=== PATIENT | female | born 1940 | race American Indian/Alaskan Native ===

== ENCOUNTER 2017-02-11 10:38 | Inpatient (IN) | payer MEDICARE ==
[2017-02-11] MEDS ORDERED: TYLENOL ONE (11:05)
[2017-02-11] MEDS ORDERED: TYLENOL PO ONE (11:16)
[2017-02-11 11:26] LABS: Basophils % (Auto) 0.2 % (0.0-1.8); Eosinophils % (Auto) 0.7 % (0.0-4.3); Hematocrit 36.1 % (30.3-42.9); Hemoglobin 11.9 gm/dl (10.1-14.3); Mean Corpuscular HGB Conc 33 % (30-34); Mean Corpuscular Volume 76 fl (79-97); Platelet Count 141 K/mm3 (140-440); Red Blood Count 4.75 M/mm3 (3.65-5.03); White Blood Count 6.8 K/mm3 (4.5-11.0)
--- NOTE | 2017-02-11 11:30 | XRay Report ---
CHEST TWO VIEWS: 02/11/17 10:38:00 CLINICAL: Shortness of breath. COMPARISON: 02/06/12 FINDINGS: Normal heart and pulmonary vasculature. Subtle patchy opacities adjacent to the left hilum and in the left lower lobe. The right lung is clear.Degenerative changes in the spine. IMPRESSION: Suspect early left upper lobe and left lower lobe pneumonia.
[2017-02-11 11:34] LABS: Mean Corpuscular Hemoglobin 25 pg (28-32)
[2017-02-11 11:52] LABS: Anion Gap 20 mmol/L; BUN/Creatinine Ratio 15.33; Blood Urea Nitrogen 23 mg/dL (7-17); Calcium 8.9 mg/dL (8.4-10.2); Carbon Dioxide 25 mmol/L (22-30); Chloride 95.3 mmol/L (98-107); Glucose 138 mg/dL (65-100); Potassium 4.8 mmol/L (3.6-5.0); Sodium 135 mmol/L (137-145)
--- NOTE | 2017-02-11 13:50 | Admit Criteria Form ---
Admission Criteria Documentation: PNEUMONIA, COMMUNITY ACQUIRED Clinical Indications for Admission to Inpatient Care ( Place 'X' for any and all applicable criteria): Admission is indicated for ANY ONE of the following (1)(2)(3): [ ]I. Hypoxemia indicated by ANY ONE of the following: [ ]a) Oxygen saturation less than 90% while breathing room air [ ]b) PO2 less than 60 mm Hg (8.0 kPa) while breathing room air [ ]c) Chronic lung disease with significant deterioration from baseline oxygenation [X]II. Appropriate diagnostic testing and treatment unavailable in outpatient or recovery facility (eg,testing or infection control measures unavailable(10) [ ]III. Moderate-risk or high-risk category patients (Pneumonia Severity Index (PSI) class IV or V, or CURB-65 score of 3 or greater). [ ]IV. Outpatient treatment failure as indicated by ANY ONE of the following(9) : [ ]a) Failure to respond to antibiotic (eg, resistant organism) [ ]b) Clinically significant adverse effects from medication (eg, vomiting) [ ]c) Complications of pneumonia (eg, empyema, bacteremia) [ ]d) Significant worsening of comorbid cond necessitating inpatient care (eg, chronic heart failure) [ ]V. Intermediate-risk category patients (eg, PSI class III or CURB-65 score 2) who do not improve with initial therapy and observation. [ ]. Immunocompromised patients (eg, AIDS, chronic steroid use) at moderate or high risk based on clinical evaluation. [ ]VII. Complicated pleural effusions (eg, exudative, loculated) [ ]VIII.Hemodynamic instability [ ] IX. Altered mental status that is severe or persistent. [ ]X. Dehydration that is severe or persistent. [ ]XI. Bacteremia [ ]XII. Respiratory finding (eg. tachypnea) that do not respond to outpatient or observation care treatment Extended stay beyond goal length of stay may be needed for (20) [ ]a) Unclear diagnosis [ ]b) Pleural disease [ ]c) Severe pneumonia or treatment failure (25 [ ]d) Respiratory failure (anticipate invasive or noninvasive ventilatory support) [ ]e) Abnormal serum electrolytes (serum Na concentration less than 135 mEq/L (mmol/L) (32)(33) [ ]f) Clinically significant comorbid illness (eg, heart failure, atrial fibrillation with rapid heart rate, alcohol withdrawal, renal insufficiency)(34)(35) [ ]g) Comorbid acute exacerbation of COPD(36) [ ]h) Concomitant diagnosis of malignancy that may be associated with malnutrition, immunologic impairment, or bronchial obstruction. [ ]i) Concomitant altered mental status [ ]j) Culture-identified Gram-negative or antibiotic-resistant organism (eg, Pseudomonas, methicillin-resistant Staphylococcus aureus)(30) [ ]k) Healthcare-associated pneumonia The original [employer] content created by [employer] has been revised. The portions of the content which have been revised are identified through the use of italic text or in bold, and [facility] has neither reviewed nor approved the modified material. All other unmodified content is copyright [employer]. Please see references footnoted in the original [employer] [email or web address] edition 2016 Admission Criteria Met: Yes
[2017-02-11] MEDS ORDERED: ROCEPHIN/NS 1 GM/50 ML 1 GM/50 ML BAG IV ONE (16:09)
[2017-02-11] MEDS ORDERED: PROVENTIL IH ONE (16:09)
[2017-02-11] MEDS ORDERED: ATROVENT IH ONE (16:09)
[2017-02-11] MEDS ORDERED: MAGNESIUM SULFATE 2GM/50ML 2 GM/50 ML BAG IV ONE (16:09)
[2017-02-11] MEDS ORDERED: TESSALON PERLES PO ONE (16:10)
[2017-02-11] MEDS ORDERED: NACL 0.9% 1000 ML 1,000 ML IV ONE (16:10)
[2017-02-11] MEDS ORDERED: ZITHROMAX 500 MG in NACL 0.9% 250ML 250 ML IV ONE (17:00)
--- NOTE | 2017-02-11 18:26 | Emergency Department Report ---
- General Chief Complaint: Dyspnea/Respdistress Stated Complaint: FLU SYMPTOMS Time Seen by Provider: 02/11/17 15:58 Source: patient Mode of arrival: Ambulatory Limitations: No Limitations - History of Present Illness Initial Comments: 76-year-old female with a past medical history asthma, diabetes, hypertension presents to Hospital complaints of shortness of breath, cough, and fever for the past 6 days. Patient complains of generalized body aches S2 in intensity. Cough is nonproductive. Fever 101 upon arrival. Patient has been using over- the-counter medication without improvement. Increased wheezing and shortness of breath episodes. No previous history of intubations. PMD.: Dr. Barno - Related Data Home Medications Medication Instructions Recorded Confirmed Last Taken Ferrous Sulfate [Feosol] 325 mg PO QDAY 02/11/17 02/11/17 02/10/17 Lisinopril/Hydrochlorothiazide 20 - 25 mg PO QDAY 02/11/17 02/11/17 02/10/17 [Zestoretic 20-12.5 mg] Meclizine [Antivert] 25 mg PO TID PRN 02/11/17 02/11/17 02/10/17 chlordiazePOXIDE [Librium] 20 mg PO Q8H 02/11/17 02/11/17 02/10/17 metFORMIN [Glucophage] 500 mg PO BID 02/11/17 02/11/17 02/10/17 Allergies Allergy/AdvReac Type Severity Reaction Status Date / Time ibuprofen [From Motrin] Allergy Vomiting Verified 02/11/17 16:09 methocarbamol [From Robaxin] Allergy Vomiting Verified 02/11/17 16:09 PEANUTS Allergy Vomiting Uncoded 02/02/15 14:27 ED Review of Systems ROS: Stated complaint: FLU SYMPTOMS Other details as noted in HPI Comment: All other systems reviewed and negative Other: Constitutional: fever Eyes: No eye pain visual changes or discharge ENT: No ear pain or throat pain Neck: Denies pain Respiratory: As per HPI Cardiovascular: Denies palpitations, syncope GI: Denies abdominal pain, nausea, vomiting, diarrhea : Denies dysuria Musculoskeletal: Generalized aches Skin: Denies rash, lesions, erythema Neurologic: Denies headache, numbness, weakness Psychiatric: Denies suicidal ideation, hallucinations ED Past Medical Hx - Past Medical History Previous Medical History?: Yes Hx Hypertension: Yes Hx Diabetes: Yes (pre dm) Hx Asthma: Yes - Surgical History Past Surgical History?: Yes Hx Cholecystectomy: Yes Additional Surgical History: neck surgery. right hand surgery. left knee surgery. hysterectomy - Social History Smoking Status: Never Smoker Substance Use Type: None - Medications Home Medications: Home Medications Medication Instructions Recorded Confirmed Last Taken Type Ferrous Sulfate [Feosol] 325 mg PO QDAY 02/11/17 02/11/17 02/10/17 History Lisinopril/Hydrochlorothiazide 20 - 25 mg PO QDAY 02/11/17 02/11/17 02/10/17 History [Zestoretic 20-12.5 mg] Meclizine [Antivert] 25 mg PO TID PRN 02/11/17 02/11/17 02/10/17 History chlordiazePOXIDE [Librium] 20 mg PO Q8H 02/11/17 02/11/17 02/10/17 History metFORMIN [Glucophage] 500 mg PO BID 02/11/17 02/11/17 02/10/17 History ED Physical Exam - General Limitations: No Limitations - Other Other exam information: General: No limitations, patient is alert in no acute distress Head exam: Atraumatic, normocephalic Eyes exam: Normal appearance ENT: Moist mucous membrane, normal oropharynx Neck exam: Normal inspection, full range of motion, no meningismus nontender Respiratory exam: Bilateral wheezing, mild tachypnea Cardiovascular: Normal rate and rhythm, normal heart sounds Abdomen: Soft, nondistended, and nontender, with normal bowel sounds, no rebound, or guarding Extremity: Full range of motion normal inspection no deformity, no calf tenderness or edema Back: Normal Inspection, full range of motion, no tenderness Neurologic: Alert, oriented x3, cranial nerves intact, no motor or sensory deficit Psychiatric: normal affect, normal mood Skin: Warm, dry, intact ED Course Vital Signs 02/11/17 02/11/17 02/11/17 10:57 14:15 14:30 Temperature 101.0 F H 99.6 F Pulse Rate 79 87 Respiratory 20 18 Rate Blood Pressure 131/70 O2 Sat by Pulse 96 Oximetry 02/11/17 02/11/17 02/11/17 14:31 15:00 15:31 Temperature Pulse Rate 79 78 74 Respiratory 17 17 20 Rate Blood Pressure 114/55 121/62 114/55 O2 Sat by Pulse 99 94 98 Oximetry 02/11/17 02/11/17 02/11/17 16:01 16:31 17:00 Temperature Pulse Rate 81 90 80 Respiratory 15 20 18 Rate Blood Pressure 111/54 111/54 112/52 O2 Sat by Pulse 93 96 99 Oximetry - Reevaluation(s) Reevaluation #1: 02/11/17 18:35 Patient received Tylenol prior to my evaluation with reduction in temperature. Patient treated with Solu-Medrol, magnesium, normal saline, Rocephin, and azithromycin, albuterol, and Atrovent with some improvement but pt still having wheezing. Room air sat 100% ED Medical Decision Making - Lab Data Result diagrams: 02/11/17 11:12 02/11/17 11:12 Lab Results 02/11/17 02/11/17 02/11/17 Range/Units 11:12 11:12 13:59 WBC 6.8 (4.5-11.0) K/mm3 RBC 4.75 (3.65-5.03) M/mm3 Hgb 11.9 (10.1-14.3) gm/dl Hct 36.1 (30.3-42.9) % MCV 76 L (79-97) fl MCH 25 L (28-32) pg MCHC 33 (30-34) % RDW 16.0 H (13.2-15.2) % Plt Count 141 (140-440) K/mm3 Lymph % (Auto) 41.1 H (13.4-35.0) % [place] % (Auto) 13.7 H (0.0-7.3) % Eos % (Auto) 0.7 (0.0-4.3) % Baso % (Auto) 0.2 (0.0-1.8) % Lymph # 2.8 (1.2-5.4) K/mm3 [place] # 0.9 H (0.0-0.8) K/mm3 Eos # 0.0 (0.0-0.4) K/mm3 Baso # 0.0 (0.0-0.1) K/mm3 Seg Neutrophils % 44.3 (40.0-70.0) % Seg Neutrophils # 3.0 (1.8-7.7) K/mm3 Sodium 135 L (137-145) mmol/L Potassium 4.8 (3.6-5.0) mmol/L Chloride 95.3 L (98-107) mmol/L Carbon Dioxide 25 (22-30) mmol/L Anion Gap 20 mmol/L BUN 23 H (7-17) mg/dL Creatinine 1.5 H (0.7-1.2) mg/dL Estimated GFR 41 ml/min BUN/Creatinine Ratio 15.33 % Glucose 138 H (65-100) mg/dL POC Glucose (70-105) Calcium 8.9 (8.4-10.2) mg/dL Troponin T < 0.010 < 0.010 (0.00-0.029) ng/mL 02/11/17 02/11/17 Range/Units 16:35 16:38 WBC (4.5-11.0) K/mm3 RBC (3.65-5.03) M/mm3 Hgb (10.1-14.3) gm/dl Hct (30.3-42.9) % MCV (79-97) fl MCH (28-32) pg MCHC (30-34) % RDW (13.2-15.2) % Plt Count (140-440) K/mm3 Lymph % (Auto) (13.4-35.0) % [place] % (Auto) (0.0-7.3) % Eos % (Auto) (0.0-4.3) % Baso % (Auto) (0.0-1.8) % Lymph # (1.2-5.4) K/mm3 [place] # (0.0-0.8) K/mm3 Eos # (0.0-0.4) K/mm3 Baso # (0.0-0.1) K/mm3 Seg Neutrophils % (40.0-70.0) % Seg Neutrophils # (1.8-7.7) K/mm3 Sodium (137-145) mmol/L Potassium (3.6-5.0) mmol/L Chloride (98-107) mmol/L Carbon Dioxide (22-30) mmol/L Anion Gap mmol/L BUN (7-17) mg/dL Creatinine (0.7-1.2) mg/dL Estimated GFR ml/min BUN/Creatinine Ratio % Glucose (65-100) mg/dL POC Glucose 94 (70-105) Calcium (8.4-10.2) mg/dL Troponin T < 0.010 (0.00-0.029) ng/mL - Radiology Data Radiology results: report reviewed (chest x-ray: Early left upper lobe and left lower lobe pneumonia) - Medical Decision Making Patient feeling somewhat better we ED treatment but has persistent wheezing. Will admit to the hospital further treatment of pneumonia with associated asthma exacerbation. - Differential Diagnosis pneumonia, bronchitis, asthma, viral syndrome Critical Care Time: No Critical care attestation.: If time is entered above; I have spent that time in minutes in the direct care of this critically ill patient, excluding procedure time. ED Disposition Clinical Impression: Pneumonia, Asthma exacerbation, Renal insufficiency Disposition: OP ADMITTED IP TO THIS HOSP Is pt being admited?: Yes Condition: Stable Time of Disposition: 18:44 (Dr esparza/hosp)
--- NOTE | 2017-02-11 19:15 | Emergency Department Report ---
Blank Doc - Documentation Documentation: Unable to edit chart. EKG normal sinus rhythm [address] elevation or T- wave inversions.
[2017-02-12] MEDS ORDERED: ANTIVERT PO PRN (03:13)
[2017-02-12] MEDS ORDERED: DUONEB 0.5 MG-3 MG/3 ML SOLN IH PRN (03:15)
[2017-02-12] MEDS ORDERED: PROVENTIL IH PRN (03:32)
[2017-02-12] MEDS: LIBRIUM PO SCH ×3 (06:56→23:39)
[2017-02-12] MEDS: DUONEB 0.5 MG-3 MG/3 ML SOLN IH SCH ×4 (08:00→19:50)
[2017-02-12] MEDS ORDERED: GLUCOPHAGE PO SCH (08:00)
--- NOTE | 2017-02-12 08:17 | Event Note ---
Date: 02/11/17 See H/p in reports
--- NOTE | 2017-02-12 09:28 | Progress Note ---
Assessment and Plan Assessment and plan: Sepsis. Patient is criteria given the diagnosis of pneumonia and organ failure with acute renal failure. Patient will be placed on the sepsis pathway. Follow -up blood, sputum cultures and lactic acid levels. Left lower lobe pneumonia. Pneumonia pathway. Continue IV antibiotics. Acute asthma exacerbation. Continue breathing treatments and steroids. Diabetes mellitus type 2. Hold metformin given the renal insufficiency. Continue Accu-Cheks and sliding scale. Hypertension. Resume antihypertensive medications. History Interval history: Pt. c/o of cough with no improvement Hospitalist Physical - Constitutional Vitals: Temp Pulse Resp BP Pulse Ox 98.6 F 100 H 24 133/62 95 02/11/17 22:00 02/11/17 23:21 02/11/17 23:21 02/11/17 22:00 02/11/17 23:21 General appearance: Present: no acute distress, well-nourished - EENT Eyes: Present: PERRL, EOM intact ENT: hearing intact, clear oral mucosa, dentition normal - Neck Neck: Present: supple, normal ROM - Respiratory Respiratory effort: normal Respiratory: bilateral: diminished, rhonchi, wheezing - Cardiovascular Rhythm: regular Heart Sounds: Present: S1 & S2. Absent: gallop, rub - Extremities Extremities: no ischemia, No edema, Full ROM - Abdominal General gastrointestinal: soft, non-tender, non-distended, normal bowel sounds - Integumentary Integumentary: Present: clear, warm, dry - Neurologic Neurologic: CNII-XII intact, moves all extremities Results - Labs CBC & Chem 7: 02/11/17 11:12 02/11/17 11:12 Labs: Laboratory Last Values WBC 6.8 K/mm3 (4.5-11.0) 02/11/17 11:12 RBC 4.75 M/mm3 (3.65-5.03) 02/11/17 11:12 Hgb 11.9 gm/dl (10.1-14.3) 02/11/17 11:12 Hct 36.1 % (30.3-42.9) 02/11/17 11:12 MCV 76 fl (79-97) L 02/11/17 11:12 MCH 25 pg (28-32) L 02/11/17 11:12 MCHC 33 % (30-34) 02/11/17 11:12 RDW 16.0 % (13.2-15.2) H 02/11/17 11:12 Plt Count 141 K/mm3 (140-440) 02/11/17 11:12 Lymph % (Auto) 41.1 % (13.4-35.0) H 02/11/17 11:12 [place] % (Auto) 13.7 % (0.0-7.3) H 02/11/17 11:12 Eos % (Auto) 0.7 % (0.0-4.3) 02/11/17 11:12 Baso % (Auto) 0.2 % (0.0-1.8) 02/11/17 11:12 Lymph # 2.8 K/mm3 (1.2-5.4) 02/11/17 11:12 [place] # 0.9 K/mm3 (0.0-0.8) H 02/11/17 11:12 Eos # 0.0 K/mm3 (0.0-0.4) 02/11/17 11:12 Baso # 0.0 K/mm3 (0.0-0.1) 02/11/17 11:12 Seg Neutrophils % 44.3 % (40.0-70.0) 02/11/17 11:12 Seg Neutrophils # 3.0 K/mm3 (1.8-7.7) 02/11/17 11:12 Sodium 135 mmol/L (137-145) L 02/11/17 11:12 Potassium 4.8 mmol/L (3.6-5.0) 02/11/17 11:12 Chloride 95.3 mmol/L (98-107) L 02/11/17 11:12 Carbon Dioxide 25 mmol/L (22-30) 02/11/17 11:12 Anion Gap 20 mmol/L 02/11/17 11:12 BUN 23 mg/dL (7-17) H 02/11/17 11:12 Creatinine 1.5 mg/dL (0.7-1.2) H 02/11/17 11:12 Estimated GFR 41 ml/min 02/11/17 11:12 BUN/Creatinine Ratio 15.33 % 02/11/17 11:12 Glucose 138 mg/dL (65-100) H 02/11/17 11:12 POC Glucose 163 (70-105) H 02/12/17 06:19 Calcium 8.9 mg/dL (8.4-10.2) 02/11/17 11:12 Troponin T < 0.010 ng/mL (0.00-0.029) 02/11/17 16:38
[2017-02-12] MEDS: FEOSOL PO SCH (09:52)
[2017-02-12] MEDS ORDERED: LEVAQUIN 750MG/150ML 750 MG/150 ML BAG IV SCH (10:00)
[2017-02-12] MEDS: TESSALON PERLES PO SCH ×3 (10:35→23:41)
--- NOTE | 2017-02-12 10:42 | History and Physical Report ---
CHIEF COMPLAINT: Shortness of breath for 6 days. HISTORY OF PRESENT ILLNESS: A 76-year-old female with history of asthma, diabetes, hypertension, comes in for shortness of breath, cough and fever for 6 days duration. Body aches also. Cough is nonproductive. Fever of 101, on arrival. The patient has been using [id number] medications. Also, increasing wheezing and shortness of breath. PAST MEDICAL HISTORY: Hypertension, diabetes, anemia, asthma. CURRENT MEDICATIONS: Ferrous sulfate 325 mg once a day, lisinopril/hydrochlorothiazide 20/25 once a day, meclizine 25 mg p.o. t.i.d., chlordiazepoxide 20 mg p.o. q.8, metformin 500 mg p.o. b.i.d. ALLERGIES: PEANUTS, IBUPROFEN, METHOCARBAMOL. PAST SURGICAL HISTORY: Cholecystectomy, neck surgery, right hand surgery, left knee surgery and hysterectomy. SOCIAL HISTORY: Does not smoke. No alcohol, no recreational drugs. REVIEW OF SYSTEMS: CONSTITUTIONAL: Has fever and chills. No weight loss, no weight gain. HEENT: No sore throat. No postnasal drip. CARDIOVASCULAR AND RESPIRATORY SYSTEM: Bilateral, the patient has wheezing and cough, which is nonproductive. Also, increasing shortness of breath. No chest pain. GASTROINTESTINAL: No nausea, no vomiting, no diarrhea. GENITOURINARY: No dysuria, no flank pain. MUSCULOSKELETAL: No joint pain. Muscle pain present. CENTRAL NERVOUS SYSTEM: No syncope, no seizures. PSYCHIATRIC: No depression. SKIN: No rashes. A 14-point review of systems was done. PHYSICAL EXAMINATION: Elderly female, cooperative during examination. VITAL SIGNS: Temperature 101.0, blood pressure 131/70, sats are 96%, pulse is 79. HEENT: Unremarkable. Pupils equal and reactive. NECK: Supple, no lymphadenopathy, no thyromegaly. LUNGS: Bilateral inspiratory and expiratory rhonchi present. CARDIOVASCULAR: S1, S2 heard. No gallop, no murmur, no rub. Apical impulse in left fifth intercostal space and midclavicular line. ABDOMEN: Soft and benign. No hepatosplenomegaly. No guarding, no rigidity. Hernial orifices are normal. EXTREMITIES: Good pedal pulses. No pedal edema. CENTRAL NERVOUS SYSTEM: Alert and oriented x 4, nonfocal exam. SKIN: Normal. LABORATORY DATA: Chest x-ray shows left upper lobe and left lower lobe pneumonias. White count is 6800, H and H is 11.9 and 36.1, platelet count is 141,000. Sodium is 135, potassium is 4.8, chloride is 95.3, bicarbonate is 25, BUN and creatinine 23 and 1.5, glucose is 138. EKG, normal sinus rhythm. ASSESSMENT AND PLAN: 1. Left side pneumonia, possible aspiration. The patient was started on broad spectrum antibiotics, which is IV Levaquin 750 mg IV piggyback every 24. 2. Asthma exacerbation. The patient started on DuoNeb and Solu-Medrol 60 mg IV piggyback q.8 hours. 3. Hypertension. Continue lisinopril 20/12.5 daily. 4. Anemia. Continue ferrous sulfate. 5. Type 2 diabetes mellitus. Continue metformin 500 mg twice a day. Accu-Cheks a.c., and sliding scale coverage. Check A1c. 6. Deep venous thrombosis prophylaxis, Lovenox 40 mg subcutaneous daily. JOB# [id number] VSM/NTS
[2017-02-12] MEDS: ZESTRIL PO SCH (12:41)
[2017-02-12] MEDS: HCTZ PO SCH (12:43)
[2017-02-12] MEDS: NOVOLOG SUB-Q SCH ×2 (16:30→23:41)
[2017-02-13] MEDS: DUONEB 0.5 MG-3 MG/3 ML SOLN IH SCH ×4 (02:36→20:37)
[2017-02-13] MEDS: XALATAN 0.005% OU SCH ×2 (03:06→22:08)
[2017-02-13] MEDS: TESSALON PERLES PO SCH ×3 (07:04→22:07)
[2017-02-13] MEDS: LIBRIUM PO SCH ×3 (08:14→22:08)
[2017-02-13] MEDS: NOVOLOG SUB-Q SCH ×4 (08:24→23:05)
--- NOTE | 2017-02-13 10:38 | Progress Note ---
Assessment and Plan Assessment and plan: Sepsis. Patient is criteria given the diagnosis of pneumonia and organ failure with acute renal failure. Patient will be placed on the sepsis pathway. Follow -up blood and sputum cultures. Lactic acid level was slightly elevated at 2.4 Left lower lobe pneumonia. Pneumonia pathway. Continue IV antibiotics. Acute asthma exacerbation. Continue breathing treatments and steroids. Diabetes mellitus type 2. Hold metformin given the renal insufficiency. Continue Accu-Cheks and sliding scale. Hypertension. Resume antihypertensive medications. History Interval history: Patient states that her cough is better. Patient also reports less dyspnea with exertion. Hospitalist Physical - Constitutional Vitals: Temp Pulse Resp BP Pulse Ox 97.8 F 76 18 133/75 100 02/13/17 08:00 02/13/17 08:00 02/13/17 08:00 02/13/17 08:00 02/13/17 08:00 General appearance: Present: no acute distress, well-nourished - EENT Eyes: Present: PERRL, EOM intact ENT: hearing intact, clear oral mucosa, dentition normal - Neck Neck: Present: supple, normal ROM - Respiratory Respiratory effort: normal Respiratory: bilateral: diminished, rhonchi - Cardiovascular Rhythm: regular Heart Sounds: Present: S1 & S2. Absent: gallop, rub - Extremities Extremities: no ischemia, No edema, Full ROM - Abdominal General gastrointestinal: soft, non-tender, non-distended, normal bowel sounds - Integumentary Integumentary: Present: clear, warm, dry - Neurologic Neurologic: CNII-XII intact, moves all extremities Results - Labs CBC & Chem 7: 02/11/17 11:12 02/11/17 11:12 Labs: Laboratory Last Values WBC 6.8 K/mm3 (4.5-11.0) 02/11/17 11:12 RBC 4.75 M/mm3 (3.65-5.03) 02/11/17 11:12 Hgb 11.9 gm/dl (10.1-14.3) 02/11/17 11:12 Hct 36.1 % (30.3-42.9) 02/11/17 11:12 MCV 76 fl (79-97) L 02/11/17 11:12 MCH 25 pg (28-32) L 02/11/17 11:12 MCHC 33 % (30-34) 02/11/17 11:12 RDW 16.0 % (13.2-15.2) H 02/11/17 11:12 Plt Count 141 K/mm3 (140-440) 02/11/17 11:12 Lymph % (Auto) 41.1 % (13.4-35.0) H 02/11/17 11:12 [place] % (Auto) 13.7 % (0.0-7.3) H 02/11/17 11:12 Eos % (Auto) 0.7 % (0.0-4.3) 02/11/17 11:12 Baso % (Auto) 0.2 % (0.0-1.8) 02/11/17 11:12 Lymph # 2.8 K/mm3 (1.2-5.4) 02/11/17 11:12 [place] # 0.9 K/mm3 (0.0-0.8) H 02/11/17 11:12 Eos # 0.0 K/mm3 (0.0-0.4) 02/11/17 11:12 Baso # 0.0 K/mm3 (0.0-0.1) 02/11/17 11:12 Seg Neutrophils % 44.3 % (40.0-70.0) 02/11/17 11:12 Seg Neutrophils # 3.0 K/mm3 (1.8-7.7) 02/11/17 11:12 Sodium 135 mmol/L (137-145) L 02/11/17 11:12 Potassium 4.8 mmol/L (3.6-5.0) 02/11/17 11:12 Chloride 95.3 mmol/L (98-107) L 02/11/17 11:12 Carbon Dioxide 25 mmol/L (22-30) 02/11/17 11:12 Anion Gap 20 mmol/L 02/11/17 11:12 BUN 23 mg/dL (7-17) H 02/11/17 11:12 Creatinine 1.5 mg/dL (0.7-1.2) H 02/11/17 11:12 Estimated GFR 41 ml/min 02/11/17 11:12 BUN/Creatinine Ratio 15.33 % 02/11/17 11:12 Glucose 138 mg/dL (65-100) H 02/11/17 11:12 POC Glucose 216 (70-105) H 02/13/17 06:16 Lactic Acid 2.40 mmol/L (0.7-2.0) H* 02/12/17 13:31 Calcium 8.9 mg/dL (8.4-10.2) 02/11/17 11:12 Troponin T < 0.010 ng/mL (0.00-0.029) 02/11/17 16:38
[2017-02-13] MEDS: FEOSOL PO SCH (11:05)
[2017-02-13] MEDS: HCTZ PO SCH (11:05)
[2017-02-13] MEDS: ZESTRIL PO SCH (11:05)
[2017-02-14] MEDS: DUONEB 0.5 MG-3 MG/3 ML SOLN IH SCH ×4 (02:03→20:59)
[2017-02-14] MEDS: LIBRIUM PO SCH ×3 (05:50→22:26)
[2017-02-14] MEDS: TESSALON PERLES PO SCH ×3 (05:51→22:21)
[2017-02-14] MEDS: ZESTRIL PO SCH (09:48)
[2017-02-14] MEDS: FEOSOL PO SCH (09:48)
[2017-02-14] MEDS: NOVOLOG SUB-Q SCH ×4 (09:49→22:31)
[2017-02-14] MEDS: HCTZ PO SCH (09:59)
[2017-02-14] MEDS ORDERED: LEVAQUIN 750MG/150ML 750 MG/150 ML BAG IV SCH (10:00)
--- NOTE | 2017-02-14 11:08 | Progress Note ---
Assessment and Plan Assessment and plan: Sepsis. Continue IV antibiotics. Left lower lobe pneumonia. Pneumonia pathway. Continue IV antibiotics. Follow -up repeat chest x-ray. Acute asthma exacerbation. Continue breathing treatments and steroids. Diabetes mellitus type 2. Hold metformin given the renal insufficiency. Continue Accu-Cheks and sliding scale. Hypertension. Resume antihypertensive medications. History Interval history: Patient still complains of cough and mild dyspnea with exertion. Hospitalist Physical - Constitutional Vitals: Temp Pulse Resp BP Pulse Ox 97.7 F 68 16 132/60 95 02/14/17 07:00 02/14/17 09:17 02/14/17 09:17 02/14/17 09:48 02/14/17 09:14 General appearance: Present: no acute distress, well-nourished - EENT Eyes: Present: PERRL, EOM intact ENT: hearing intact, clear oral mucosa, dentition normal - Neck Neck: Present: supple, normal ROM - Respiratory Respiratory effort: normal Respiratory: bilateral: diminished, rhonchi - Cardiovascular Rhythm: regular Heart Sounds: Present: S1 & S2. Absent: gallop, rub - Extremities Extremities: no ischemia, No edema, Full ROM - Abdominal General gastrointestinal: soft, non-tender, non-distended, normal bowel sounds - Integumentary Integumentary: Present: clear, warm, dry - Neurologic Neurologic: CNII-XII intact, moves all extremities Results - Labs CBC & Chem 7: 02/11/17 11:12 02/11/17 11:12 Labs: Laboratory Last Values WBC 6.8 K/mm3 (4.5-11.0) 02/11/17 11:12 RBC 4.75 M/mm3 (3.65-5.03) 02/11/17 11:12 Hgb 11.9 gm/dl (10.1-14.3) 02/11/17 11:12 Hct 36.1 % (30.3-42.9) 02/11/17 11:12 MCV 76 fl (79-97) L 02/11/17 11:12 MCH 25 pg (28-32) L 02/11/17 11:12 MCHC 33 % (30-34) 02/11/17 11:12 RDW 16.0 % (13.2-15.2) H 02/11/17 11:12 Plt Count 141 K/mm3 (140-440) 02/11/17 11:12 Lymph % (Auto) 41.1 % (13.4-35.0) H 02/11/17 11:12 [place] % (Auto) 13.7 % (0.0-7.3) H 02/11/17 11:12 Eos % (Auto) 0.7 % (0.0-4.3) 02/11/17 11:12 Baso % (Auto) 0.2 % (0.0-1.8) 02/11/17 11:12 Lymph # 2.8 K/mm3 (1.2-5.4) 02/11/17 11:12 [place] # 0.9 K/mm3 (0.0-0.8) H 02/11/17 11:12 Eos # 0.0 K/mm3 (0.0-0.4) 02/11/17 11:12 Baso # 0.0 K/mm3 (0.0-0.1) 02/11/17 11:12 Seg Neutrophils % 44.3 % (40.0-70.0) 02/11/17 11:12 Seg Neutrophils # 3.0 K/mm3 (1.8-7.7) 02/11/17 11:12 Sodium 135 mmol/L (137-145) L 02/11/17 11:12 Potassium 4.8 mmol/L (3.6-5.0) 02/11/17 11:12 Chloride 95.3 mmol/L (98-107) L 02/11/17 11:12 Carbon Dioxide 25 mmol/L (22-30) 02/11/17 11:12 Anion Gap 20 mmol/L 02/11/17 11:12 BUN 23 mg/dL (7-17) H 02/11/17 11:12 Creatinine 1.5 mg/dL (0.7-1.2) H 02/11/17 11:12 Estimated GFR 41 ml/min 02/11/17 11:12 BUN/Creatinine Ratio 15.33 % 02/11/17 11:12 Glucose 138 mg/dL (65-100) H 02/11/17 11:12 POC Glucose 197 (70-105) H 02/14/17 06:14 Lactic Acid 2.40 mmol/L (0.7-2.0) H* 02/12/17 13:31 Calcium 8.9 mg/dL (8.4-10.2) 02/11/17 11:12 Troponin T < 0.010 ng/mL (0.00-0.029) 02/11/17 16:38
--- NOTE | 2017-02-14 12:20 | XRay Report ---
ROUTINE CHEST, TWO VIEWS: HISTORY: Followup pneumonia. The subtle left upper lobe infiltrate has decreased by 50% since 02/11/17. The remainder of the lungs are clear. No pleural effusion or pneumothorax. Normal heart and mediastinal structures. IMPRESSION: Improvement in the left upper lobe infiltrate.
[2017-02-14] MEDS: XALATAN 0.005% OU SCH (22:30)
[2017-02-15] MEDS: DUONEB 0.5 MG-3 MG/3 ML SOLN IH SCH ×3 (02:06→14:33)
[2017-02-15] MEDS: TESSALON PERLES PO SCH (05:20)
[2017-02-15] MEDS: LIBRIUM PO SCH (05:25)
[2017-02-15 07:41] LABS: Basophils % (Auto) 0.1 % (0.0-1.8); Hematocrit 34.9 % (30.3-42.9); Hemoglobin 11.3 gm/dl (10.1-14.3); Mean Corpuscular HGB Conc 33 % (30-34); Mean Corpuscular Volume 75 fl (79-97); Platelet Count 152 K/mm3 (140-440); Red Blood Count 4.63 M/mm3 (3.65-5.03); Red Cell Distribution Width 16.3 % (13.2-15.2); White Blood Count 12.4 K/mm3 (4.5-11.0)
[2017-02-15 07:53] LABS: BUN/Creatinine Ratio 29.16; Calcium 8.8 mg/dL (8.4-10.2); Chloride 95.2 mmol/L (98-107); Potassium 5.1 mmol/L (3.6-5.0)
[2017-02-15 08:06] LABS: Mean Corpuscular Hemoglobin 25 pg (28-32)
[2017-02-15 08:25] VITALS: BP 137/62
--- NOTE | 2017-02-15 08:29 | Discharge Summary ---
Providers - Providers Date of Admission: 02/11/17 18:45 Date of discharge: 02/15/17 Attending physician: LEXUS SHORT Primary care physician: MARIE GRAFF Hospitalization Reason for admission: pna Condition: Stable Hospital course: This is a 76-year-old female with past medical history of asthma, diabetes and hypertension who presented to the emergency department with complaints of cough and cold symptoms for 6 days prior to admission. Patient also complained of generalized body aches and a fever of 101. Cough was nonproductive. Patient was also noted to have increased wheezing and dyspnea. Chest x-ray revealed left lower lobe pneumonia. Patient was admitted with diagnosis of asthma exacerbation, sepsis, acute kidney injury and pneumonia. The acute kidney injury was to be secondary to vasomotor nephropathy/dehydration and probable sepsis. Patient received appropriate IV antibiotics and has significant improvement. Follow-up chest x-ray showed interval improvement in the pneumonia. Creatinine returned to baseline before discharge of 1.2. Patient is felt to have received maximal hospital benefit and will be discharged home. Dedicated discharge time 35 minutes. Disposition: DISCHARGED TO HOME OR SELFCARE Time spent for discharge: 35 - Discharge Diagnoses (1) LUIS MIGUEL (acute kidney injury) Status: Acute (2) Vasomotor nephropathy Status: Acute (3) Sepsis Status: Acute Qualifiers: Sepsis type: S (4) Asthma exacerbation Status: Acute (5) Pneumonia Status: Acute Qualifiers: Pneumonia type: P Aspiration pneumonia type: A Laterality: L Lung location: L (6) Renal insufficiency Status: Acute Core Measure Documentation - Palliative Care Palliative Care/ Comfort Measures: Not Applicable - Core Measures Any of the following diagnoses?: none Exam - Constitutional Vitals: Temp Pulse Resp BP Pulse Ox 98.4 F 79 18 159/62 97 02/14/17 23:00 02/15/17 08:11 02/15/17 08:11 02/14/17 23:00 02/15/17 08:12 General appearance: Present: no acute distress, well-nourished - EENT Eyes: Present: PERRL ENT: hearing intact, clear oral mucosa - Neck Neck: Present: supple, normal ROM - Respiratory Respiratory effort: normal Respiratory: bilateral: CTA - Cardiovascular Heart Sounds: Present: S1 & S2. Absent: rub, click - Extremities Extremities: pulses symmetrical, No edema Peripheral Pulses: within normal limits - Abdominal General gastrointestinal: Present: soft, non-tender, non-distended, normal bowel sounds Female genitourinary: Present: normal - Integumentary Integumentary: Present: clear, warm, dry - Musculoskeletal Musculoskeletal: gait normal, strength equal bilaterally - Psychiatric Psychiatric: appropriate mood/affect, intact judgment & insight - Neurologic Neurologic: CNII-XII intact, moves all extremities Plan Activity: no restrictions Weight Bearing Status: Full Weight Bearing Diet: regular Follow up with: MARIE GRAFF MD [Primary Care Provider] - 7 Days Prescriptions: Benzonatate [Tessalon Perles] 100 mg PO Q8HR #30 capsule chlordiazePOXIDE [Librium] 20 mg PO Q8H #30 capsule Ferrous Sulfate [Feosol 325 MG tab] 325 mg PO QDAY #30 tablet Ipratropium/Albuterol Sulfate [Duoneb 0.5 mg-3 mg/3 ml Soln] 1 ampul IH Q6HRT # 30 ampul.neb Levofloxacin [Levaquin] 750 mg PO QDAY #7 tablet Lisinopril/Hydrochlorothiazide [Zestoretic 20-12.5 mg] 20 - 25 mg PO QDAY #30 tablet Meclizine [Antivert] 25 mg PO TID PRN #30 tablet PRN Reason: Vertigo Prednisone [predniSONE 10 mg (6-Day Pack, 21 Tabs)] 10 mg PO .TAPER #1 tab.ds.pk
[2017-02-15] MEDS: NOVOLOG SUB-Q SCH (08:45)
[2017-02-15] MEDS: FEOSOL PO SCH (09:03)
[2017-02-15] MEDS: HCTZ PO SCH (09:03)
[2017-02-15] MEDS: ZESTRIL PO SCH (09:03)
== END 2017-02-15 15:00 | disposition home or self-care (01) | DRG 871 ==
LOC: ED 10:38 → 3A 18:45
PROVIDERS: ADMIT Internal Medicine; ATTEND Hospitalist
PROC: 5A09457 Assistance with Respiratory Ventilation, 24-96 Consecutive Hours, Continuous Positive Airway Pressure (ICD-10-PCS; principal; 2017-02-11)
DX: A41.9 Sepsis, unspecified organism (principal); J18.9 Pneumonia, unspecified organism; N17.0 Acute kidney failure with tubular necrosis; J45.901 Unspecified asthma with (acute) exacerbation; E11.9 Type 2 diabetes mellitus without complications; I10 Essential (primary) hypertension; D64.9 Anemia, unspecified; Z90.49 Acquired absence of other specified parts of digestive tract; Z90.710 Acquired absence of both cervix and uterus; Z91.010 Allergy to peanuts
CPT/HCPCS: 36415; 71020; 80048; 82140; 82962; 84484; 85025; 87040; 93005; 93010; 94640; 94660; 94760; 96365; 96367; 96375; J0456; J0696; J1815; J1956; J2920; J2930; J3475; J7030; J7050

== ENCOUNTER 2017-06-26 09:38 | Outpatient (CLI) | payer MEDICARE ==
--- NOTE | 2017-06-26 11:20 | Mammography Report ---
Bilateral mammogram with tomosynthesis: Compared to 06/25/16. CAD study utilized. Findings: Predominance of adipose tissue bilaterally. No mass or microcalcification. Benign axilla. Impression: Benign findings. Annual followup recommended. BI-RADS CATEGORY: 2 = Benign ACR BI-RADS MAMMOGRAPHIC CODES: 0 = Needs additional imaging evaluation; 1 = Negative; 2 = Benign; 3 = Probably benign; 4 = Suspicious; 5 = Malignant; 6 = Known biopsy-proven malignancy COMMENT: 1. Dense breast tissue, i.e., adenosis, fibrocystic changes, etc., may obscure an underlying neoplasm. 2. Approximately 10% of cancers are not detected with mammography. 3. A negative mammography report should not delay biopsy if a clinically suspicious mass is present.
== END 2017-06-26 09:39 | disposition home or self-care (01) ==
LOC: MAMMO 09:38
PROVIDERS: ATTEND Family Medicine
DX: Z12.31 Encounter for screening mammogram for malignant neoplasm of breast (principal)
CPT/HCPCS: 77063; G0202; 77067

== ENCOUNTER 2018-06-28 10:05 | Outpatient (CLI) | payer MEDICARE ==
--- NOTE | 2018-06-28 11:50 | Mammography Report ---
BILATERAL MAMMOGRAM: FINDINGS: There are scattered fibroglandular densities (approximately 25%-50% glandular). No mass, distortion, suspicious calcification, or skin change is seen. There are no significant changes when compared to exams dating back to June 2016. CAD was utilized. IMPRESSION: Negative mammogram. There is no mammographic evidence of malignancy. RECOMMENDATION: Follow-up per ACS guidelines. BI-RADS CATEGORY: 1 = Negative ACR BI-RADS MAMMOGRAPHIC CODES: 0 = Needs additional imaging evaluation; 1 = Negative; 2 = Benign; 3 = Probably benign; 4 = Suspicious; 5 = Malignant; 6 = Known biopsy-proven malignancy COMMENT: 1. Dense breast tissue, i.e., adenosis, fibrocystic changes, etc., may obscure an underlying neoplasm. 2. Approximately 10% of cancers are not detected with mammography. 3. A negative mammography report should not delay biopsy if a clinically suspicious mass is present. COMMENT: Patient follow-up letters are generated in [email or web address].
== END 2018-06-28 10:06 | disposition home or self-care (01) ==
LOC: MAMMO 10:05
PROVIDERS: ATTEND Family Medicine
DX: Z12.31 Encounter for screening mammogram for malignant neoplasm of breast (principal); J45.901 Unspecified asthma with (acute) exacerbation; I10 Essential (primary) hypertension; Z90.49 Acquired absence of other specified parts of digestive tract; Z90.710 Acquired absence of both cervix and uterus
CPT/HCPCS: 77067

== ENCOUNTER 2019-08-29 09:52 | Outpatient (CLI) | payer MEDICARE ==
--- NOTE | 2019-08-30 10:10 | Mammography Report ---
DIGITAL SCREENING MAMMOGRAM WITH CAD, 08/29/2019 INDICATION: Routine screening mammography. TECHNIQUE: Digital bilateral 2D mammography was obtained in the craniocaudal and mediolateral obliq ue projections. This examination was interpreted with the benefit of Computer-Aided Detection analysi s. COMPARISON: 06/28/2018 FINDINGS: Breast Density: There are scattered areas of fibroglandular density. There is no evidence of dominant mass, suspicious calcifications or architectural distortion in eithe r breast. IMPRESSION: No mammographic evidence of malignancy. Follow up recommendation: Routine yearly BI-RADS Category 1: Negative. A "normal" or negative report should not discourage follow up or biopsy of a clinically significant f inding. A written summary of these findings will be mailed to the patient. The patient will be entered into a mammography reporting system which will generate a reminder letter for the patient's next appointmen t at the appropriate interval. The [employer] recommends yearly mammograms starting at age 40 and continuing as l oni as a woman is in good health. Breast MRI is recommended for women with an approximate 20-25% or greater lifetime risk of breast cancer, including women with a strong family history of breast or ova ceci cancer or who have been treated for Hodgkin's disease. Signer Name: Raghu Pro MD Signed: 08/30/2019 10:06 AM Workstation Name: [id number]
== END 2019-08-29 09:53 | disposition home or self-care (01) ==
LOC: MAMMO 09:52
PROVIDERS: ATTEND Family Medicine
DX: Z12.31 Encounter for screening mammogram for malignant neoplasm of breast (principal)
CPT/HCPCS: 77067

== ENCOUNTER 2020-03-11 19:41 | Emergency (ER) | payer MEDICARE ==
[2020-03-11 19:52] VITALS: BP 157/81
== END 2020-03-11 21:23 | disposition home or self-care (01) ==
LOC: ED 19:41
DX: S63.502A Unspecified sprain of left wrist, initial encounter (principal); S60.222A Contusion of left hand, initial encounter; I10 Essential (primary) hypertension; E11.9 Type 2 diabetes mellitus without complications; J45.909 Unspecified asthma, uncomplicated; Z90.49 Acquired absence of other specified parts of digestive tract; Z90.710 Acquired absence of both cervix and uterus; Z98.890 Other specified postprocedural states; Z79.2 Long term (current) use of antibiotics; Z79.84 Long term (current) use of oral hypoglycemic drugs; Z79.899 Other long term (current) drug therapy; Z88.8 Allergy status to other drugs, medicaments and biological substances; Z91.010 Allergy to peanuts; W01.0XXA Fall on same level from slipping, tripping and stumbling without subsequent striking against object, initial encounter; Y93.89 Activity, other specified; Y92.481 Parking lot as the place of occurrence of the external cause; Y99.8 Other external cause status

== ENCOUNTER 2021-01-15 09:51 | Outpatient (CLI) | payer MEDICARE ==
--- NOTE | 2021-01-15 12:07 | Mammography Report ---
DIGITAL SCREENING MAMMOGRAM WITH CAD, 01/15/2021 CLINICAL INFORMATION / INDICATION: Routine screening mammography. SCREENING MAMMO TECHNIQUE: Digital bilateral 2D mammography was obtained in the craniocaudal and mediolateral obliqu e projections. This examination was interpreted with the benefit of Computer-Aided Detection analysis . COMPARISON: Prior mammograms 08/29/2019 and 06/28/2018 FINDINGS: Breast Density: There are scattered areas of fibroglandular density. No dominant mass, suspicious calcifications, or architectural distortion in the right breast. There is a new 6 mm focal asymmetric density in the 9:00 position of the left breast, middle to poste rior depth. IMPRESSION: 1. A new focal asymmetric density in the left breast requires further evaluation with spot compressio n views and targeted ultrasound if needed. Follow up recommendation: Special View: Spot BI-RADS Category 0: Incomplete. Needs additional imaging evaluation and/or prior mammograms for ha kong. A "normal" or negative report should not discourage follow up or biopsy of a clinically significant f inding. A written summary of these findings will be mailed to the patient. The patient will be entered into a mammography reporting system which will generate a reminder letter for the patient's next appointmen t at the appropriate interval. The [employer] recommends yearly mammograms starting at age 40 and continuing as l oni as a woman is in good health. Breast MRI is recommended for women with an approximate 20-25% or greater lifetime risk of breast cancer, including women with a strong family history of breast or ova ceci cancer or who have been treated for Hodgkin's disease. Signer Name: Antonia Rodriguez MD Signed: 01/15/2021 11:33 AM Workstation Name: [id number]
== END 2021-01-15 09:52 | disposition home or self-care (01) ==
LOC: MAMMO 09:51
PROVIDERS: ATTEND Family Medicine
DX: Z12.31 Encounter for screening mammogram for malignant neoplasm of breast (principal); N64.89 Other specified disorders of breast
CPT/HCPCS: 77067

== ENCOUNTER 2021-01-28 09:24 | Outpatient (CLI) | payer MEDICARE ==
--- NOTE | 2021-01-28 14:28 | Mammography Report ---
LEFT DIGITAL DIAGNOSTIC MAMMOGRAM WITH CAD CONVENTIONAL, 01/28/2021 LEFT LIMITED BREAST ULTRASOUND CLINICAL INFORMATION / INDICATION: Abnormal screening mammogram. Screening recall the left breast for new density. TECHNIQUE: Digital left mammographic imaging was performed. Spot compression views were obtained. Maurice ited ultrasound was performed. This examination was interpreted with the benefit of Computer-Aided De tection (CAD) analysis. COMPARISON: Screening mammogram, 01/15/2021, 08/29/2019, 06/28/2018 FINDINGS: Breast Density: There are scattered areas of fibroglandular density. MAMMOGRAPHIC FINDINGS: Spot compression views of the left breast demonstrate that the circumscribed d ensity in question at the 9:00 position resolves. ULTRASOUND FINDINGS: Targeted ultrasound evaluation was performed of the area of interest. Sonograp hic evaluation of the medial left breast demonstrates an 8 mm cyst at the 10:00 position periareolar location and a 5 mm cyst at the 9:00 position 3 cm from the nipple. These cysts correspond to the den sity seen on the mammogram. There is no evidence of suspicious solid mass or shadowing. IMPRESSION: No mammographic or sonographic evidence of malignancy. Left breast cysts as described rep resenting a benign finding. Follow up recommendation: Routine yearly BI-RADS Category 2: Benign. A "normal" or negative report should not discourage follow up or biopsy of a clinically significant f inding. A written summary of these findings will be mailed to the patient. The patient will be entered into a mammography reporting system which will generate a reminder letter for the patient's next appointmen t at the appropriate interval. According to the [employer], yearly mammograms are recommended starting at age 40 and continuing as long as a woman is in good health. Breast MRI is recommended for women with an babatunde roximately 20-25% or greater lifetime risk of breast cancer, including women with a strong family his tory of breast or ovarian cancer and women who have been treated for Hodgkin's disease. Signer Name: Juana Eli MD Signed: 01/28/2021 2:23 PM Workstation Name: [email or web address]
== END 2021-01-28 09:25 | disposition home or self-care (01) ==
LOC: MAMMO 09:24
PROVIDERS: ATTEND Family Medicine
DX: N60.02 Solitary cyst of left breast (principal)

== ENCOUNTER 2021-03-14 12:47 | Emergency (ER) | payer MEDICARE ==
--- NOTE | 2021-03-14 13:47 | Event Note ---
ED Screening Note ED Screening Note: left sided CP that radiates to the back that began two weeks ago states it worsened yesterday and now having shooting pains worse with movement and sitting forward states she had a MRI of her left shoulder but is awaiting her results This initial assessment/diagnostic orders/clinical plan/treatment(s) is/are subject to change based on patients health status, clinical progression and re- assessment by fellow clinical providers in the ED. Further treatment and workup at subsequent clinical providers discretion. Patient/guardian urged not to elope from the ED as their condition may be serious if not clinically assessed and managed. Initial orders include: CP protocol
--- NOTE | 2021-03-14 14:20 | XRay Report ---
CHEST 2 VIEWS INDICATION / CLINICAL INFORMATION: Chest Pain. COMPARISON: 02/14/2017 FINDINGS: SUPPORT DEVICES: None. HEART / MEDIASTINUM: Stable. LUNGS / PLEURA: No significant pulmonary or pleural abnormality. No pneumothorax. ADDITIONAL FINDINGS: No significant additional findings. IMPRESSION: 1. No acute findings. Signer Name: Tiburcio Butler MD Signed: 03/14/2021 2:16 PM Workstation Name: [id number]
[2021-03-14 14:59] LABS: Basophils # (Auto) 0.1 K/mm3 (0.0-0.1); Basophils % (Auto) 0.6 % (0.0-1.8); Eosinophils # (Auto) 0.1 K/mm3 (0.0-0.4); Eosinophils % (Auto) 1.2 % (0.0-4.3); Hematocrit 38.6 % (30.3-42.9); Hemoglobin 12.7 gm/dl (10.1-14.3); Lymphocytes # (Auto) 3.7 K/mm3 (1.2-5.4); Lymphocytes % (Auto) 36.6 % (13.4-35.0); Mean Corpuscular HGB Conc 33 % (30-34); Mean Corpuscular Volume 75 fl (79-97); Monocytes # (Auto) 0.8 K/mm3 (0.0-0.8); Monocytes % (Auto) 7.6 % (0.0-7.3); Platelet Count 157 K/mm3 (140-440); Red Blood Count 5.13 M/mm3 (3.65-5.03); Red Cell Distribution Width 15.8 % (13.2-15.2)
[2021-03-14 15:17] LABS: INR 0.9 (0.87-1.13); Partial Thromboplastin Time 28.7 Sec. (24.2-36.6)
[2021-03-14 15:19] LABS: Alanine Aminotransferase 10 units/L (7-56); Albumin 4.2 g/dL (3.9-5); BUN/Creatinine Ratio 19; Blood Urea Nitrogen 30 mg/dL (7-17); Calcium 9.5 mg/dL (8.4-10.2); Hemolysis Index 8
--- NOTE | 2021-03-14 19:58 | Emergency Department Report ---
ED Chest Pain HPI - General Chief Complaint: Chest Pain Stated Complaint: TOP LEFT CHEST PAINS PUI?: No Time Seen by Provider: 03/14/21 13:40 Source: patient Mode of arrival: Ambulatory Limitations: No Limitations - History of Present Illness Initial Comments: Patient is a 80-year-old female who presents emergency room with complaints of left shoulder and left chest pain. Patient states her pain started approximately 4 5 weeks ago. Patient states her pain is worsening. Patient states she was lifting a cabinet in her bathroom 3 or 4 days ago and she injured her left shoulder and left upper chest. Patient states the pain is better with rest. Patient states the pain is worse with movement and palpation of the left shoulder and left upper chest. Patient denies fever and chills. Patient denies shortness of breath. Patient denies diaphoresis. Patient states that she saw her primary care and she did MRI of the right shoulder and she is waiting for the results. Patient states she already has an appoint with orthopedist in a week to manage this left shoulder pain. Patient states that after injuring her left shoulder worse by lifting the cabinet the patient then developed this severe left upper chest pain. Patient states she wanted to be checked out. Patient denies recent travel. Patient denies recent international travel. Patient denies exposure to the novel coronavirus. Patient denies sick contacts. Patient denies fever and chills. Patient denies cough. Patient denies diarrhea. Patient denies coming in contact with anybody with symptoms of the novel coronavirus. Patient states she has a history of prediabetes, hypertension. Patient states he is on Metformin but only for prediabetes that she had a normal A1c her last check with her primary care. MD Complaint: chest pain -: Sudden Pain Location: left chest Severity: severe Severity scale (0 -10): 10 Quality: sharp Consistency: constant Improves With: rest Worsens With: palpation, movement Context: trauma/injury re: denies: nausea, vomting, diaphoresis, dyspnea, sense of impending doom Other Symptoms: denies: cough, fever, syncope, rash, acid taste in mouth, leg swelling, palpitations, burping Treatments Prior to Arrival: aspirin Aspirin use within the Past 7 Days: (1) Yes - Related Data On Oral Contraceptives: No Home Medications Medication Instructions Recorded Confirmed Last Taken metFORMIN [Glucophage] 500 mg PO BID 02/11/17 02/11/17 02/10/17 Previous Rx's Medication Instructions Recorded Last Taken Type Benzonatate [Tessalon Perles] 100 mg PO Q8HR #30 capsule 02/15/17 Unknown Rx Ferrous Sulfate [Feosol 325 MG tab] 325 mg PO QDAY #30 tablet 02/15/17 Unknown Rx Ipratropium/Albuterol Sulfate 1 ampul IH Q6HRT #30 ampul.neb 02/15/17 Unknown Rx [DUONEB *Not for PRN Use*] Latanoprost 0.005% 1 drops OU QHS bottle 02/15/17 Unknown Rx Lisinopril/Hydrochlorothiazide 20 - 25 mg PO QDAY #30 tablet 02/15/17 Unknown Rx [Zestoretic 20-12.5 mg] Meclizine [Antivert] 25 mg PO TID PRN #30 tablet 02/15/17 Unknown Rx Prednisone [predniSONE 10 mg 10 mg PO .TAPER #1 tab.ds.pk 02/15/17 Unknown Rx (6-Day Pack, 21 Tabs)] chlordiazePOXIDE [Librium] 20 mg PO Q8H #30 capsule 02/15/17 Unknown Rx levoFLOXacin [Levaquin] 750 mg PO QDAY #7 tablet 02/15/17 Unknown Rx Metaxalone [Skelaxin] 800 mg PO TID PRN #12 tablet 03/14/21 Unknown Rx traMADoL [Ultram] 50 mg PO Q4HR PRN #10 tablet 03/14/21 Unknown Rx Allergies Allergy/AdvReac Type Severity Reaction Status Date / Time methocarbamol [From Robaxin] Allergy Vomiting Verified 03/14/21 13:00 Heart Score - HEART Score History: Slightly suspicious EKG: Normal Age: > 65 Risk factors: No known risk factors Troponin: < normal limit HEART Score: 2 - EKG Read Time Time EKG Completed: 13:12 EKG Read Time: 13:17 ED Review of Systems ROS: Stated complaint: TOP LEFT CHEST PAINS Other details as noted in HPI Constitutional: denies: chills, fever Eyes: denies: eye pain, eye discharge, vision change ENT: denies: ear pain, throat pain Respiratory: denies: cough, shortness of breath, wheezing Cardiovascular: as per HPI, chest pain. denies: palpitations Endocrine: no symptoms reported Gastrointestinal: denies: abdominal pain, nausea, diarrhea Genitourinary: denies: urgency, dysuria, discharge Musculoskeletal: denies: back pain, joint swelling, arthralgia Skin: denies: rash, lesions Neurological: denies: headache, weakness, paresthesias Psychiatric: denies: anxiety, depression Hematological/Lymphatic: denies: easy bleeding, easy bruising ED Past Medical Hx - Past Medical History Previous Medical History?: Yes Hx Hypertension: Yes Hx Diabetes: Yes (pre dm) Hx Renal Disease: Yes (Baseline 1.6-1.7 creatinine) Hx Asthma: Yes - Surgical History Past Surgical History?: Yes Hx Cholecystectomy: Yes Additional Surgical History: neck surgery. right hand surgery. hysterectomy. LEFT KNEE SURGERY - Family History Family history: no significant - Social History Smoking Status: Never Smoker - Medications Home Medications: Home Medications Medication Instructions Recorded Confirmed Last Taken Type metFORMIN [Glucophage] 500 mg PO BID 02/11/17 02/11/17 02/10/17 History Benzonatate [Tessalon Perles] 100 mg PO Q8HR #30 capsule 02/15/17 Unknown Rx Ferrous Sulfate [Feosol 325 MG tab] 325 mg PO QDAY #30 tablet 02/15/17 Unknown Rx Ipratropium/Albuterol Sulfate 1 ampul IH Q6HRT #30 ampul.neb 02/15/17 Unknown Rx [DUONEB *Not for PRN Use*] Latanoprost 0.005% 1 drops OU QHS bottle 02/15/17 Unknown Rx Lisinopril/Hydrochlorothiazide 20 - 25 mg PO QDAY #30 tablet 02/15/17 Unknown Rx [Zestoretic 20-12.5 mg] Meclizine [Antivert] 25 mg PO TID PRN #30 tablet 02/15/17 Unknown Rx Prednisone [predniSONE 10 mg 10 mg PO .TAPER #1 tab.ds.pk 02/15/17 Unknown Rx (6-Day Pack, 21 Tabs)] chlordiazePOXIDE [Librium] 20 mg PO Q8H #30 capsule 02/15/17 Unknown Rx levoFLOXacin [Levaquin] 750 mg PO QDAY #7 tablet 02/15/17 Unknown Rx Metaxalone [Skelaxin] 800 mg PO TID PRN #12 tablet 03/14/21 Unknown Rx traMADoL [Ultram] 50 mg PO Q4HR PRN #10 tablet 03/14/21 Unknown Rx ED Physical Exam - General Limitations: No Limitations General appearance: alert, in no apparent distress - Head Head exam: Present: atraumatic, normocephalic - Eye Eye exam: Present: normal appearance - ENT ENT exam: Present: mucous membranes moist - Neck Neck exam: Present: normal inspection - Respiratory Respiratory exam: Present: normal lung sounds bilaterally, chest wall tenderness. Absent: respiratory distress - Cardiovascular Cardiovascular Exam: Present: regular rate, normal rhythm. Absent: systolic murmur, diastolic murmur, rubs, gallop - GI/Abdominal GI/Abdominal exam: Present: soft, normal bowel sounds. Absent: distended, tenderness, guarding - Extremities Exam Extremities exam: Present: normal inspection, tenderness (Over left shoulder.) - Back Exam Back exam: Present: normal inspection - Neurological Exam Neurological exam: Present: alert, oriented X3 - Psychiatric Psychiatric exam: Present: normal affect, normal mood - Skin Skin exam: Present: warm, dry, intact, normal color. Absent: rash ED Course Vital Signs 03/14/21 13:06 Temperature 98.5 F Pulse Rate 87 Respiratory 20 Rate Blood Pressure 121/63 O2 Sat by Pulse 99 Oximetry - Reevaluation(s) Reevaluation #1: I discussed all results and clinical findings with patient. I discussed plan of care with patient. Patient agrees with plan of care. Patient is stable for discharge. Patient will be discharged home. Patient given discharge instructions. Patient voiced understanding of discharge instructions. 03/14/21 19:57 RADHA score - Radha Score Age > 65: (1) Yes Aspirin use within the Past 7 Days: (0) No 3 or more CAD Risk Factors: (0) No 2 or more Angina events in past 24 hrs: (0) No Known CAD with more than 50% Stenosis: (0) No Elevated Cardiac Markers: (0) No ST Deviation Greater than 0.5mm: (0) No RADHA Score: 1 ED Medical Decision Making - Lab Data Result diagrams: 03/14/21 14:13 03/14/21 14:13 - EKG Data -: EKG Interpreted by Me EKG shows normal: sinus rhythm, axis, intervals, QRS complexes, ST-T waves Rate: normal - Radiology Data Radiology results: report reviewed, image reviewed interpreted by me: Chest x-ray: No pneumonia, no pneumothorax, no foreign body, no osseous findings, no acute findings CHEST 2 VIEWS INDICATION / CLINICAL INFORMATION: Chest Pain. COMPARISON: 02/14/2017 FINDINGS: SUPPORT DEVICES: None. HEART / MEDIASTINUM: Stable. LUNGS / PLEURA: No significant pulmonary or pleural abnormality. No pneumothorax. ADDITIONAL FINDINGS: No significant additional findings. IMPRESSION: 1. No acute findings. - Medical Decision Making Patient is a 80-year-old female who presents emergency room with complaints of left shoulder and left upper chest pain. Patient notified consistent with chest wall sprain. Patient's chest pain been going on for 3 to 4 days or more. Patient is already been seen by primary care for the shoulder pain and has an appointment with orthopedist. Patient had a chest x-ray was negative for acute finding. Patient had an EKG which shows a normal sinus rhythm and no ST changes. Patient had labs done which were essentially unremarkable except for chronic kidney disease. Patient's creatinine is at baseline.. Patient's troponins were negative x2. From emergency room standpoint, the patient is medically cleared and can be discharged home. Patient's chest pain can be managed by orthopedist and we will send the patient to an outpatient follow-up with a felling bucking supervisor for risk ratification since the patient came to emergency r oom complaining of chest pain. Patient stable discharge. Patient discharged home. Patient given discharge directions. Patient information faxed over to our local cardiology group for further evalu ation and treatment and management of the chest pain and risk stratification. - Differential Diagnosis Chest pain, chest sprain, shoulder sprain, chest wall pain, musculoskeletal Critical care attestation.: If time is entered above; I have spent that time in minutes in the direct care of this critically ill patient, excluding procedure time. ED Disposition Clinical Impression: Chest wall pain Chest pain Qualifiers: Chest pain type: unspecified Qualified Code(s): R07.9 - Chest pain, unspecified Chest wall muscle strain Qualifiers: Encounter type: initial encounter Qualified Code(s): S29.011A - Strain of muscle and tendon of front wall of thorax, initial encounter Disposition: DC-01 TO HOME OR SELFCARE Is pt being admited?: No Does the pt Need Aspirin: No Condition: Stable Instructions: Nonspecific Chest Pain, Adult, Muscle Strain, Chest Wall Pain Additional Instructions: Patient to follow-up with primary care in 2 to 3 days. Patient to follow-up with felling bucking supervisor and orthopedist in 2 to 3 days. Patient to rest. Patient to increase water. Patient to avoid strenuous exercise or heavy lifting until cleared by felling bucking supervisor and orthopedist. Patient to take Tylenol as needed for pain. Patient to take meds as directed. Patient eat a low-salt diet. Patient to avoid ibuprofen. Patient to return to the ER if condition worsens, changes or new symptoms arise. Prescriptions: Metaxalone [Skelaxin] 800 mg PO TID PRN #12 tablet PRN Reason: Muscle Spasm traMADoL [Ultram] 50 mg PO Q4HR PRN #10 tablet PRN Reason: Pain Referrals: EFREN CRAWFORD DO [Primary Care Provider] - 2-3 Days YASMIN MEZA MD [Staff Physician] - 2-3 Days Time of Disposition: 20:02
[2021-03-14 20:30] VITALS: BP 120/58
--- NOTE | 2021-03-21 11:07 | Electrocardiograph Report ---
[facility] Test Date: 2021-03-14 Test Time: 13:12:07 Pat Name: MARS CHANG Department: Room: Gender: F Proposal Development Manager: SOLEDAD : 1940 Requested By: ED DOC Order Number: [id number] Reading MD: Marco Meade Measurements Intervals [place] Rate: 78 P: 65 [place]: 158 QRS: 9 QRSD: 87 T: 28 QT: 344 QTc: 394 Interpretive Statements Sinus rhythm No previous ECG available for comparison Electronically Signed On 03-21-2021 11:07:00 EDT by Marco Meade
== END 2021-03-14 20:25 | disposition home or self-care (01) ==
LOC: ED 12:47
DX: S29.011A Strain of muscle and tendon of front wall of thorax, initial encounter (principal); R07.89 Other chest pain; J45.909 Unspecified asthma, uncomplicated; I10 Essential (primary) hypertension; E11.9 Type 2 diabetes mellitus without complications; Z90.49 Acquired absence of other specified parts of digestive tract; Z90.710 Acquired absence of both cervix and uterus; Z79.899 Other long term (current) drug therapy; Z88.8 Allergy status to other drugs, medicaments and biological substances; Z98.890 Other specified postprocedural states; X50.0XXA Overexertion from strenuous movement or load, initial encounter; Y93.89 Activity, other specified; Y92.89 Other specified places as the place of occurrence of the external cause; Y99.8 Other external cause status
CPT/HCPCS: 36415; 71046; 80053; 84484; 85025; 85610; 85730; 93005